=== PATIENT | female | born 1950 ===

== ENCOUNTER 2017-02-18 15:15 | Emergency (ER) | payer MEDICARE, MEDICAID ==
[2017-02-18 15:16] VITALS: BMI 29.0
[2017-02-18 16:44] LABS: BASO % 0.5 % (0.0-2.0); EOS # 0.2 K/uL (0.0-0.7); EOS % 2.1 % (0.0-4.0); HEMATOCRIT 35.4 % (34.0-47.0); LYMPH % 38.9 % (20.0-40.0); MEAN CELL VOLUME 90.8 fL (81.0-99.0); MEAN CORPUSCULAR HEMOGLOBIN 30.2 pg (27.0-31.0); MEAN CORPUSCULAR HGB CONC 33.3 g/dL (33.0-37.0); MEAN PLATELET VOLUME 10.3 fL (7.2-11.7); MONO # 0.7 K/uL (0.0-0.8); MONO % 8.8 % (0.0-10.0); NRBC % 0.1 % (0.0-2.0); RED CELL DISTRIBUTION WIDTH 14.6 % (11.5-14.5); WHITE BLOOD COUNT 7.6 K/uL (4.8-10.8)
[2017-02-18] MEDS ORDERED: Sodium Chloride 0.9% 500 ML IV ONE (16:45)
--- NOTE | 2017-02-18 16:46 | C.PDOC ---
History Of Present Illness 67 y/o female presents to ED with complaints of left lower abdominal pain for 1 week with associated constipation. Patient denies nausea, vomiting, diarrhea, vaginal bleeding, vaginal discharge, dysuria, shortness of breath or any other complaints at this time. Time Seen by Provider: 02/18/17 16:03 Chief Complaint (Nursing): Abdominal Pain History Per: Patient History/Exam Limitations: no limitations Onset/Duration Of Symptoms: Days Current Symptoms Are (Timing): Still Present Location Of Pain/Discomfort: LLQ Radiation Of Pain To:: None Quality Of Discomfort: "Pain" Past Medical History Reviewed: Historical Data, Nursing Documentation, Vital Signs Vital Signs: Last Vital Signs Temp 98 F 02/18/17 15:49 Pulse 83 02/18/17 15:49 Resp 18 02/18/17 15:49 BP Pulse Ox 100 02/18/17 17:08 - Medical History PMH: Arthritis, Gastritis, HTN, Hypercholesterolemia Surgical History: No Surg Hx Family History: States: No Known Family Hx - Social History Hx Tobacco Use: No Hx Alcohol Use: No Hx Substance Use: No - Immunization History Hx Tetanus Toxoid Vaccination: No Hx Influenza Vaccination: No Hx Pneumococcal Vaccination: No Review Of Systems Except As Marked, All Systems Reviewed And Found Negative. Cardiovascular: Negative for: Chest Pain Respiratory: Negative for: Cough, Shortness of Breath Gastrointestinal: Positive for: Abdominal Pain, Constipation. Negative for: Nausea, Vomiting, Diarrhea Genitourinary: Negative for: Dysuria, Frequency, Incontinence, Hematuria, Vaginal Discharge, Vaginal Bleeding Neurological: Negative for: Weakness, Numbness Physical Exam - Physical Exam Appears: Well, Non-toxic, No Acute Distress Skin: Warm, Dry, No Rash Head: Normacephalic Eye(s): bilateral: Normal Inspection, PERRL, EOMI Oral Mucosa: Moist Neck: Normal ROM, Supple Chest: Symmetrical Cardiovascular: Rhythm Regular Respiratory: Normal Breath Sounds, No Rales, No Rhonchi, No Wheezing Gastrointestinal/Abdominal: Soft, Tenderness (LLQ), No Guarding, No Rebound Back: Normal Inspection, No CVA Tenderness Extremity: Normal ROM Neurological/Psych: Oriented x3, Normal Motor, Normal Sensation Gait: Steady ED Course And Treatment - Laboratory Results Result Diagrams: 02/18/17 16:36 02/18/17 16:36 O2 Sat by Pulse Oximetry: 100 (RA) Pulse Ox Interpretation: Normal Medical Decision Making Medical Decision Making: Labs grossly normal. UA shows 8 wbc and trace leukocytes. CT ordered to evaluate further. Will sign out to Dr. Sylvester to follow-up CT and reevaluate. Disposition - Disposition Disposition Time: 18:48 Condition: GOOD Forms: [facility] (French) - Clinical Impression Clinical Impression: Abdominal pain - Scribe Statement The provider has reviewed the documentation as recorded by the Scribe Silas Wilkins All medical record entries made by the Jonibjefe were at my direction and personally dictated by me. I have reviewed the chart and agree that the record accurately reflects my personal performance of the history, physical exam, medical decision making, and the department course for this patient. I have also personally directed, reviewed, and agree with the discharge instructions and disposition.
[2017-02-18] MEDS ORDERED: Sodium Chloride 0.9% 1,000 ML ONE (16:52)
[2017-02-18 16:54] LABS: RBC URINE 1 /hpf (0-3); URINE BACTERIA RARE (<OCC); URINE BILIRUBIN NEGATIVE (NEGATIVE); URINE BLOOD NEGATIVE (NEGATIVE); URINE COLOR Yellow (YELLOW); URINE GLUCOSE (UA) NORMAL (Normal); URINE KETONE NEGATIVE (NEGATIVE); URINE LEUKOCYTE ESTERASE TRACE Leu/uL (Negative); URINE PROTEIN NEGATIVE (NEGATIVE); URINE UROBILINOGEN NORMAL mg/dL (0.2-1.0); WBC URINE 8 /hpf (0-5)
[2017-02-18 17:24] LABS: CHLORIDE 102 mmol/L (98-107); POTASSIUM 3.9 mmol/L (3.6-5.2); SODIUM 136 mmol/L (132-148)
[2017-02-18 17:26] LABS: AST/SGOT 18 U/L (14-36); BILIRUBIN,TOTAL 0.6 mg/dL (0.2-1.3); GFR AFRICAN-AMERICAN > 60
[2017-02-18 17:27] LABS: ALB/GLOB RATIO 1.2 (1.0-2.1); ALKALINE PHOSPHATASE 93 U/L (38-126); ALT/SGPT 27 U/L (9-52); BLOOD UREA NITROGEN 18 mg/dL (7-17); CALCIUM 8.2 mg/dl (8.6-10.4); CARBON DIOXIDE 22 mmol/L (22-30); GLUCOSE,RANDOM 96 mg/dL (65-105); TOTAL PROTEIN 7.2 g/dL (6.3-8.3)
[2017-02-18] MEDS ORDERED: Iodixanol 320 MG/ML 100 ML BOTTLE IV ONE (18:28)
--- NOTE | 2017-02-18 19:02 | CT ---
PROCEDURE: CT Abdomen and Pelvis with contrast HISTORY: LLQ pain, constipation COMPARISON: None. TECHNIQUE: Contrast dose: 100 cc Visipaque 320. Radiation dose: Total exam DLP = 875.87 mGy-cm. This CT exam was performed using one or more of the following dose reduction techniques: Automated exposure control, adjustment of the mA and/or kV according to patient size, and/or use of iterative reconstruction technique. FINDINGS: LOWER THORAX: Unremarkable. LIVER: Hepatic steatosis. No focal masses. No intrahepatic bile duct dilatation or perihepatic ascites. Incidental finding(s): Hepatic cyst 5 x 5.8 cm right hepatic lobe. GALLBLADDER AND BILE DUCTS: Unremarkable. PANCREAS: Unremarkable. No gross lesion or ductal dilatation. SPLEEN: Unremarkable. ADRENALS: Unremarkable. No mass. KIDNEYS AND URETERS: Unremarkable. No hydronephrosis. No solid mass. VASCULATURE: Unremarkable. No aortic aneurysm. BOWEL: Segmental thickening of the wall of the descending colon and adjacent sigmoid colon consistent with acute diverticulitis. No drainable collections identified. Small micro perforations are seen. No loculated air or free air. The affected segment is approximately 10 cm. Postoperative findings/gastric surgery-bypass. APPENDIX: Normal appendix. PERITONEUM: Unremarkable. No free fluid. No free air. LYMPH NODES: Bilateral enlarged inguinal lymph nodes. BLADDER: Unremarkable. REPRODUCTIVE: Unremarkable. BONES: No acute fracture. OTHER FINDINGS: None. IMPRESSION: Acute diverticulitis affecting distal descending colon and adjacent sigmoid. Additional benign and/or incidental findings described above.
[2017-02-18 19:05] VITALS: BP 117/69; PULSE 71; RESP 20; TEMP 97.8; O2SAT 98
== END 2017-02-18 19:54 | disposition home or self-care (01) ==
LOC: C.ER 15:15
DX: K57.92 Diverticulitis of intestine, part unspecified, without perforation or abscess without bleeding (principal); E78.00 Pure hypercholesterolemia, unspecified; I10 Essential (primary) hypertension
CPT/HCPCS: 74177; 80053; 81001; 83690; 85025; 96361; 96374; 99285; J1885; J7040; Q9967

== ENCOUNTER 2017-05-28 14:38 | Emergency (ER) | payer OTHER ==
[2017-05-28 14:38] VITALS: BMI 29.0
[2017-05-28] MEDS ORDERED: Sodium Chloride 0.9% 1,000 ML IV ONE (16:34)
--- NOTE | 2017-05-28 16:53 | C.PDOC ---
History Of Present Illness 67yo female, with history of gastritis, hypertension, hyperlipidemia, osteoporosis, arthritis, presents to ED with complaints of epigastric and left sided abdominal pain for the apst 4 days. She reports 2 episodes of yellow diarrhea with associated nausea. She denies ant vomiting, fever, chills, chest pain, shortness of breath, leg pain or urinary symptoms. Patient reports she has been feeling "down" as well. She reports similar symptoms 3-4 months ago but states she did not have epigastric pain. She has no other medical complaints. Time Seen by Provider: 05/28/17 16:31 Chief Complaint (Nursing): Abdominal Pain History Per: Patient History/Exam Limitations: no limitations Onset/Duration Of Symptoms: Days Current Symptoms Are (Timing): Still Present Location Of Pain/Discomfort: Epigastric, LUQ, LLQ Quality Of Discomfort: "Pain" Associated Symptoms: Nausea, Diarrhea. denies: Fever, Chills, Vomiting, Back Pain, Chest Pain, Constipation, Urinary Symptoms Abnormal Vaginal Bleeding: No Past Medical History Reviewed: Historical Data, Nursing Documentation, Vital Signs Vital Signs: Last Vital Signs Temp 98 F 05/28/17 20:13 Pulse 62 05/28/17 20:13 Resp 18 05/28/17 20:13 BP 145/76 05/28/17 20:13 Pulse Ox 100 05/28/17 21:01 - Medical History PMH: Arthritis, Gastritis, HTN, Hypercholesterolemia Surgical History: No Surg Hx Family History: States: Unknown Family Hx - Social History Hx Tobacco Use: No Hx Alcohol Use: No Hx Substance Use: No - Immunization History Hx Tetanus Toxoid Vaccination: No Hx Influenza Vaccination: No Hx Pneumococcal Vaccination: No Review Of Systems Except As Marked, All Systems Reviewed And Found Negative. Constitutional: Negative for: Fever, Chills Cardiovascular: Negative for: Chest Pain Respiratory: Negative for: Shortness of Breath Gastrointestinal: Positive for: Nausea, Abdominal Pain, Diarrhea Physical Exam - Physical Exam Appears: Non-toxic, No Acute Distress Skin: Normal Color Eye(s): bilateral: Normal Inspection Neck: Supple Cardiovascular: Rhythm Regular Respiratory: Normal Breath Sounds Gastrointestinal/Abdominal: Bowel Sounds, Soft, Tenderness (epigastric and left lower quadrant) Back: Normal Inspection, No CVA Tenderness, No Vertebral Tenderness Neurological/Psych: Oriented x3, Normal Speech ED Course And Treatment - Laboratory Results Result Diagrams: 05/28/17 16:57 05/28/17 16:57 O2 Sat by Pulse Oximetry: 100 (RA) Pulse Ox Interpretation: Normal Medical Decision Making Medical Decision Making: Impression: Abdominal pain ro gastisi, pancreatitis, divertifultitis- labs imaging Plan: -- Labs -- Protonix 40mg IVP -- IV Fluids 940: pt reassesed: abd soft no ttp. ct neg for acute pathology. pt asking for dc. Disposition - Disposition Referrals: [facility] [Outside] [facility] [Outside] [facility] [Outside] Wade Pedraza MD [Staff Provider] - Disposition: HOME/ ROUTINE Disposition Time: 20:53 Condition: STABLE Additional Instructions: please follow up with specialist. return to er with worsening symptoms or concerns. Prescriptions: Famotidine [Pepcid] 20 mg PO DAILY #20 tab Instructions: Acute Abdominal Pain (DC) Forms: [facility] (Palauan) Print Language: PORTUGUESE - Clinical Impression Clinical Impression: Abdominal pain - Scribe Statement The provider has reviewed the documentation as recorded by the Scribe (Shelly Caldwell) Provider Attestation: All medical record entries made by the Scribe were at my direction and personally dictated by me. I have reviewed the chart and agree that the record accurately reflects my personal performance of the history, physical exam, medical decision making, and the department course for this patient. I have also personally directed, reviewed, and agree with the discharge instructions and disposition.
[2017-05-28 17:02] LABS: BASO % 0.3 % (0.0-2.0); EOS # 0.1 K/uL (0.0-0.7); EOS % 1.9 % (0.0-4.0); HEMOGLOBIN 12.2 g/dL (11.0-16.0); LYMPH # 2.5 K/uL (1.0-4.3); LYMPH % 46.3 % (20.0-40.0); MEAN CELL VOLUME 91.1 fL (81.0-99.0); MEAN CORPUSCULAR HEMOGLOBIN 30.3 pg (27.0-31.0); MEAN CORPUSCULAR HGB CONC 33.3 g/dL (33.0-37.0); MONO # 0.6 K/uL (0.0-0.8); MONO % 11.4 % (0.0-10.0); NEUT # 2.2 K/uL (1.8-7.0); NEUT % 40.1 % (50.0-75.0); NRBC % 0.1 % (0.0-2.0); RBC 4.02 Mil/uL (3.80-5.20); RED CELL DISTRIBUTION WIDTH 14.6 % (11.5-14.5); WHITE BLOOD COUNT 5.5 K/uL (4.8-10.8)
[2017-05-28 17:03] LABS: SQUAMOUS EPITHIAL < 1 /hpf (0-5); URINE BILIRUBIN NEGATIVE (NEGATIVE); URINE BLOOD NEGATIVE (NEGATIVE); URINE CLARITY Clear (Clear); URINE COLOR Yellow (YELLOW); URINE GLUCOSE (UA) NORMAL (Normal); URINE LEUKOCYTE ESTERASE NEG Leu/uL (Negative); URINE NITRATE NEGATIVE (NEGATIVE); URINE PROTEIN NEGATIVE (NEGATIVE); URINE UROBILINOGEN NORMAL mg/dL (0.2-1.0)
[2017-05-28 17:11] LABS: PROTHROMBIN TIME 11.3 SECONDS (9.7-12.2)
[2017-05-28 17:15] LABS: ALB/GLOB RATIO 1.4 (1.0-2.1); ALBUMIN 3.8 g/dL (3.5-5.0); ALT/SGPT 27 U/L (9-52); AST/SGOT 22 U/L (14-36); BLOOD UREA NITROGEN 11 mg/dL (7-17); CALCIUM 8.8 mg/dl (8.6-10.4); GFR AFRICAN-AMERICAN > 60; GFR NON-AFRICAN AMERICAN > 60; LIPASE 145 U/L (23-300)
[2017-05-28] MEDS ORDERED: Iohexol 300 100 ML IJ ONE (18:37)
[2017-05-28 19:56] VITALS: RESP 18; O2SAT 100
[2017-05-28 20:14] VITALS: BP 145/76; PULSE 62; TEMP 98
--- NOTE | 2017-05-28 20:43 | CT ---
EXAM: CT Abdomen and Pelvis With Intravenous Contrast EXAM DATE/TIME: 05/28/2017 5:05 PM CLINICAL HISTORY: 67 years old, female; Pain; Abdominal pain; Flank; Lower; Additional info: Llq pain TECHNIQUE: Axial computed tomography images of the abdomen and pelvis with intravenous contrast. All CT scans at this facility use one or more dose reduction techniques, viz.: automated exposure control; ma/kV adjustment per patient size (including targeted exams where dose is matched to indication; i.e. head); or iterative reconstruction technique. Coronal and sagittal reformatted images were created and reviewed. CONTRAST: 100 mL of omnipaque 300 administered intravenously. COMPARISON: No relevant prior studies available. FINDINGS: LIMITATIONS: Mild to moderate streak/motion artifact. LOWER THORAX: Heart appears mildly enlarged. Small hiatal hernia. ABDOMEN: LIVER: Large low density liver lesion, measuring 6.5 cm maximally. This has well-defined, lobulated margins, and a density compatible with simple fluid. It appears to contain a thin septation. It most likely represents a minimally complex cyst. Fatty infiltration of the liver. No evidence of diffuse liver lesions. GALLBLADDER AND BILE DUCTS: No CT evidence of acute cholecystitis. No evidence of significant biliary ductal dilatation. PANCREAS: No CT evidence of acute pancreatitis. SPLEEN: No acute abnormality of the spleen identified. ADRENALS: No acute abnormality of the adrenal glands identified. KIDNEYS AND URETERS: No acute abnormality of the kidneys identified. No evidence of significant hydrouereteronephrosis. STOMACH AND BOWEL: Extensive colonic diverticulosis, with no evidence of acute diverticulitis. Postoperative changes involving the stomach, most likely related to previous gastric sleeve surgery. Otherwise, no significant abnormality of the bowel is identified. No evidence of small bowel obstruction. No acute abnormality of the stomach is identified. APPENDIX: Appendix is seen, and is within normal limits in appearance. PELVIS: BLADDER: No acute abnormality of the bladder identified. REPRODUCTIVE:No acute abnormality of the reproductive organs is seen. No acute abnormality of the uterus identified. No evidence of large adnexal masses. ABDOMEN and PELVIS: INTRAPERITONEAL SPACE: No evidence of free intraperitoneal air or fluid. BONES/JOINTS: Bony structures appear demineralized. SOFT TISSUES: No acute abnormality of the visualized soft tissues is seen. VASCULATURE: No evidence of abdominal aortic aneurysm. No evidence of periaortic hemorrhage. LYMPH NODES: No evidence of diffuse lymphadenopathy. IMPRESSION: - No evidence of significant acute process. No definite cause for pain identified. - Extensive colonic diverticulosis, without diverticulitis. - Evidence of prior gastric sleeve surgery. - Large 6.5 cm liver lesion, most likely a minimally complex cyst. - See above for remaining findings.
== END 2017-05-28 21:05 | disposition home or self-care (01) ==
LOC: C.ER 14:38
DX: R10.13 Epigastric pain (principal)
CPT/HCPCS: 74177; 80053; 81001; 83690; 85025; 85610; 85730; 96361; 96374; 99285; C9113; J7040; Q9967

== ENCOUNTER 2018-05-26 12:37 | Outpatient (CLI) | payer OTHER | END 2018-05-26 12:38 | disposition home or self-care (01) | LOC: C.USIC 12:37 | DX: E04.9 Nontoxic goiter, unspecified (principal); M80.00XD Age-related osteoporosis with current pathological fracture, unspecified site, subsequent encounter for fracture with routine healing ==

== ENCOUNTER 2018-07-22 13:39 | Emergency (ER) | payer OTHER ==
[2018-07-22 13:39] VITALS: BMI 29.0
[2018-07-22 14:00] VITALS: BP 124/70; PULSE 78; RESP 20; TEMP 98.3; O2SAT 100
[2018-07-22 15:16] LABS: BASO % 0.5 % (0.0-2.0); EOS # 0.1 K/uL (0.0-0.7); EOS % 1.8 % (0.0-4.0); HEMOGLOBIN 12.1 g/dL (11.0-16.0); LYMPH # 3.3 K/uL (1.0-4.3); LYMPH % 41.6 % (20.0-40.0); MEAN CELL VOLUME 92.8 fL (81.0-99.0); MEAN CORPUSCULAR HEMOGLOBIN 30.9 pg (27.0-31.0); MEAN CORPUSCULAR HGB CONC 33.3 g/dL (33.0-37.0); MEAN PLATELET VOLUME 10.1 fL (7.2-11.7); MONO # 0.6 K/uL (0.0-0.8); MONO % 7.8 % (0.0-10.0); NEUT # 3.8 K/uL (1.8-7.0); NEUT % 48.3 % (50.0-75.0); NRBC % 0.1 % (0.0-2.0); RBC 3.93 Mil/uL (3.80-5.20); RED CELL DISTRIBUTION WIDTH 14.4 % (11.5-14.5); WHITE BLOOD COUNT 7.8 K/uL (4.8-10.8)
--- NOTE | 2018-07-22 15:26 | RAD ---
Date of service: 07/22/2018 HISTORY: Cough, RUQ pain COMPARISON: CT chest 03/21/2016 TECHNIQUE: Chest PA and lateral views FINDINGS: LUNGS: No active pulmonary disease. PLEURA: No significant pleural effusion identified. No pneumothorax apparent. CARDIOVASCULAR: No aortic atherosclerotic calcification present. Normal cardiac size. No pulmonary vascular congestion. OSSEOUS STRUCTURES: Thoracic spondylosis VISUALIZED UPPER ABDOMEN: Normal. OTHER FINDINGS: None. IMPRESSION: No active disease. Other findings as above.
[2018-07-22 15:30] LABS: SQUAMOUS EPITHIAL 2 /hpf (0-5); URINE BILIRUBIN NEGATIVE (NEGATIVE); URINE BLOOD NEGATIVE (NEGATIVE); URINE CLARITY Hazy (Clear); URINE COLOR Yellow (YELLOW); URINE GLUCOSE (UA) NORMAL (Normal); URINE LEUKOCYTE ESTERASE 1+ Leu/uL (Negative); URINE PROTEIN NEGATIVE (NEGATIVE); URINE UROBILINOGEN NORMAL mg/dL (0.2-1.0)
[2018-07-22 15:34] LABS: ALB/GLOB RATIO 1.4 (1.0-2.1); ALBUMIN 4.1 g/dL (3.5-5.0); ALT/SGPT 16 U/L (9-52); AST/SGOT 29 U/L (14-36); BLOOD UREA NITROGEN 16 mg/dL (7-17); CALCIUM 9.2 mg/dl (8.6-10.4); GFR NON-AFRICAN AMERICAN > 60; LIPASE 76 U/L (23-300)
--- NOTE | 2018-07-22 15:59 | US ---
Date of service: 07/22/2018 HISTORY: RUQ pain COMPARISON: CT abdomen and pelvis 05/28/2017 TECHNIQUE: Sonographic evaluation of the right upper quadrant of the abdomen. FINDINGS: LIVER: Measures 16.4 cm in length. Normal echogenicity of the liver parenchyma. In the right hepatic lobe a complex predominantly cystic mass is noted minimal low level echoes within it and some thin septations within it suggested. This measures approximately 9.3 x 7.9 x 9.4 cm in size.. No vascularity to it is noted. A slightly smaller measured and reported low-density well-defined lobulated cystic appearing mass with thin septations compatible with a previously referenced minimally complex cyst on the CT from 05/28/2017 was mentioned. The differences in measurement could be technical given the short interval time frame. The CT mention of a liver cyst cyst measuring up to 6 cm on the 02/18/2017 study is also noted. No intrahepatic bile duct dilatation. GALLBLADDER: Unremarkable. No gallstones. COMMON BILE DUCT: Measures 5 mm. No stones. No dilatation. PANCREAS: Unremarkable as visualized. No mass. No ductal dilatation. RIGHT KIDNEY: Measures 10.3 x 4.9 x 4.2 cm in length. Normal echogenicity. No calculus, mass, or hydronephrosis. AORTA: No aneurysmal dilatation. IVC: Unremarkable. OTHER FINDINGS: None . IMPRESSION: Re-noted is a large inferior right hepatic lobe cyst mildly complicated in appearance with low level echoes and thin septations. This has been noted albeit slightly smaller in size per CT measurements dating back to a CT from 02/18/2017. Consider rechecking this with right upper quadrant ultrasound in 6 months to reassess stability using similar modality. No vascularity noted.
--- NOTE | 2018-07-22 16:31 | C.PDOC ---
Time Seen by Provider: 07/22/18 14:20 Chief Complaint (Nursing): Abdominal Pain History Per: Patient Onset/Duration Of Symptoms: Days (about 2 weeks) Current Symptoms Are (Timing): Still Present Severity: Moderate Location Of Pain/Discomfort: RUQ Quality Of Discomfort: "Pain" Additional History Per: Prior Records Past Medical History Reviewed: Historical Data, Nursing Documentation, Vital Signs Vital Signs: Last Vital Signs Temp 98.3 F 07/22/18 13:53 Pulse 78 07/22/18 13:53 Resp 20 07/22/18 13:53 BP 124/70 07/22/18 13:53 Pulse Ox 100 07/22/18 13:53 - Medical History PMH: Arthritis, Gastritis, HTN, Hypercholesterolemia Family History: States: Unknown Family Hx - Social History Hx Tobacco Use: No Hx Alcohol Use: No Hx Substance Use: No - Immunization History Hx Tetanus Toxoid Vaccination: No Hx Influenza Vaccination: No Hx Pneumococcal Vaccination: No Review Of Systems Except As Marked, All Systems Reviewed And Found Negative. Constitutional: Negative for: Fever, Weakness Cardiovascular: Negative for: Chest Pain Respiratory: Positive for: Cough. Negative for: Shortness of Breath Gastrointestinal: Positive for: Abdominal Pain. Negative for: Vomiting, Dara rrhea Genitourinary: Negative for: Dysuria, Hematuria Musculoskeletal: Negative for: Neck Pain Skin: Negative for: Rash Neurological: Negative for: Weakness, Numbness Physical Exam - Physical Exam Appears: Non-toxic, No Acute Distress Skin: Normal Color, Warm, Dry, No Rash Head: Atraumatic, Normacephalic Eye(s): bilateral: PERRL, EOMI Neck: Normal ROM, Supple Cardiovascular: Rhythm Regular Respiratory: Normal Breath Sounds, No Accessory Muscle Use Gastrointestinal/Abdominal: Soft, No Tenderness Back: No CVA Tenderness Extremity: Normal ROM Neurological/Psych: Oriented x3, Normal Motor, Normal Sensation ED Course And Treatment - Laboratory Results Result Diagrams: 07/22/18 15:08 07/22/18 15:08 Lab Results: Total Bilirubin 0.9 mg/dL (0.2-1.3) 07/22/18 15:08 AST 29 U/L (14-36) 07/22/18 15:08 ALT 16 U/L (9-52) 07/22/18 15:08 Alkaline Phosphatase 140 U/L (38-126) H 07/22/18 15:08 Total Protein 6.9 g/dL (6.3-8.3) 07/22/18 15:08 Albumin 4.1 g/dL (3.5-5.0) 07/22/18 15:08 Globulin 2.8 gm/dL (2.2-3.9) 07/22/18 15:08 Albumin/Globulin Ratio 1.4 (1.0-2.1) 07/22/18 15:08 Lipase 76 U/L (23-300) 07/22/18 15:08 Urine Color Yellow (YELLOW) 07/22/18 15:08 Urine Clarity Hazy (Clear) 07/22/18 15:08 Urine pH 5.0 (5.0-8.0) 07/22/18 15:08 Ur Specific Starke 1.017 (1.003-1.030) 07/22/18 15:08 Urine Protein Negative mg/dL (NEGATIVE) 07/22/18 15:08 Urine Glucose (UA) Normal mg/dL (Normal) 07/22/18 15:08 Urine Ketones Negative mg/dL (NEGATIVE) 07/22/18 15:08 Urine Blood Negative (NEGATIVE) 07/22/18 15:08 Urine Nitrate Negative (NEGATIVE) 07/22/18 15:08 Urine Bilirubin Negative (NEGATIVE) 07/22/18 15:08 Urine Urobilinogen Normal mg/dL (0.2-1.0) 07/22/18 15:08 Ur Leukocyte Esterase 1+ Kayla/uL (Negative) H 07/22/18 15:08 Urine WBC (Auto) 1 /hpf (0-5) 07/22/18 15:08 Urine RBC (Auto) 1 /hpf (0-3) 07/22/18 15:08 Ur Squamous Epith Cells 2 /hpf (0-5) 07/22/18 15:08 Lab Interpretation: No Acute Changes O2 Sat by Pulse Oximetry: 100 Pulse Ox Interpretation: Normal - Radiology CXR: Viewed By Me, Read By Radiologist CXR Interpretation: Yes: No Acute Disease - CT Scan/US RUQ Sono Other Rad Studies (CT/US): Read By Radiologist, Radiology Report Reviewed CT/US Interpretation: IMPRESSION: Re-noted is a large inferior right hepatic lobe cyst mildly complicated in appearance with low level echoes and thin s eptations. This has been noted albeit slightly smaller in size per CT measurements dating back to a CT from 02/18/2017. Consider rechecking this with right upper quadrant ultrasound in 6 months to reassess stability using similar modality. No vascularity noted. Disposition Counseled Patient/Family Regarding: Studies Performed, Diagnosis, Need For Followup - Disposition Referrals: Rossana Joseph APN [Advanced Practice Nurse] - Dylon Sánchez MD [Staff Provider] - Disposition: HOME/ ROUTINE Disposition Time: 16:32 Condition: STABLE Additional Instructions: Follow up with your primary doctor and a [employer] for further evaluation and treatment. It is recommended that the ultrasound is repeated in 6 months. Return to the ER if you develop fever, vomiting, worsening of symptoms or if you have any other concerns. Instructions: Cysts in the Liver Forms: [facility] (Central African) Print Language: SYRIAN - Clinical Impression Clinical Impression: Liver cyst
== END 2018-07-22 16:49 | disposition home or self-care (01) ==
LOC: C.ER 13:39
DX: K76.89 Other specified diseases of liver (principal); I10 Essential (primary) hypertension; E78.00 Pure hypercholesterolemia, unspecified

== ENCOUNTER 2018-09-24 12:47 | Outpatient (CLI) | payer OTHER | END 2018-09-24 12:48 | disposition home or self-care (01) | LOC: C.MAMMO 12:48 | DX: R92.1 Mammographic calcification found on diagnostic imaging of breast (principal) ==